=== PATIENT | female | born 1930 | race Caucasian/White ===

== ENCOUNTER → 2017-07-15 | Outpatient (CLI) | payer MEDICARE ==
[~2017-07-15] MED LIST: ACET-2743 PO; ALBUTEROL HFA IH; ALEN70TA2 PO; AMLO10TA2 PO; CA C1TAB99 PO; CHOL200074 PO; CICL6.6S TP; CLON0.1T PO; CLOP75TA14 PO; FEBU80TA PO; LIDOCAINE/PRILOCAINE CREAM 5GM TUBE TP ONE; NEBI20TA2 PO; SIMV40TA59 PO; TORS20TA4 PO; VIT1CAPS47 PO; VITA150T PO
[2017-07-15 17:43] VITALS: BP 156/74
== END | disposition home or self-care (01) ==
LOC: WHH 15:00
PROVIDERS: ATTEND Family Medicine
DX: I83.018 Varicose veins of right lower extremity with ulcer other part of lower leg (principal); E11.622 Type 2 diabetes mellitus with other skin ulcer; L97.811 Non-pressure chronic ulcer of other part of right lower leg limited to breakdown of skin; I89.0 Lymphedema, not elsewhere classified; I10 Essential (primary) hypertension; I25.10 Atherosclerotic heart disease of native coronary artery without angina pectoris; I69.354 Hemiplegia and hemiparesis following cerebral infarction affecting left non-dominant side; E78.4 Other hyperlipidemia; M15.9 Polyosteoarthritis, unspecified; E66.9 Obesity, unspecified; Z79.4 Long term (current) use of insulin
CPT/HCPCS: A4450; A6209; G0463; J3490

== ENCOUNTER → 2017-07-21 | Outpatient (CLI) | payer MEDICARE ==
[~2017-07-21] MED LIST changes: -LIDOCAINE/PRILOCAINE CREAM 5GM TUBE TP ONE
[2017-07-21 13:19] VITALS: BP 156/80
== END | disposition home or self-care (01) ==
LOC: WHH 09:20
PROVIDERS: ATTEND Family Medicine
DX: I83.018 Varicose veins of right lower extremity with ulcer other part of lower leg (principal); L97.811 Non-pressure chronic ulcer of other part of right lower leg limited to breakdown of skin; I25.10 Atherosclerotic heart disease of native coronary artery without angina pectoris; I10 Essential (primary) hypertension; I89.0 Lymphedema, not elsewhere classified; E66.9 Obesity, unspecified; E78.4 Other hyperlipidemia; M15.9 Polyosteoarthritis, unspecified; Z79.4 Long term (current) use of insulin
CPT/HCPCS: 93922; A6209; G0463

== ENCOUNTER → 2017-07-22 | Outpatient (CLI) | payer MEDICARE ==
[2017-07-22 13:42] VITALS: BP 162/59
== END | disposition home or self-care (01) ==
LOC: WHH 13:00
PROVIDERS: ATTEND Family Medicine
DX: I83.018 Varicose veins of right lower extremity with ulcer other part of lower leg (principal); E11.622 Type 2 diabetes mellitus with other skin ulcer; L97.811 Non-pressure chronic ulcer of other part of right lower leg limited to breakdown of skin; I89.0 Lymphedema, not elsewhere classified; I10 Essential (primary) hypertension; I25.10 Atherosclerotic heart disease of native coronary artery without angina pectoris; E66.9 Obesity, unspecified; E78.4 Other hyperlipidemia; M15.9 Polyosteoarthritis, unspecified; Z86.73 Personal history of transient ischemic attack (TIA), and cerebral infarction without residual deficits; Z79.4 Long term (current) use of insulin
CPT/HCPCS: A6021; A6452; G0463

== ENCOUNTER 2017-07-29 13:00 | Outpatient (CLI) | payer MEDICARE ==
[2017-07-29 13:23] VITALS: BP 141/69
== END 2017-07-29 14:51 | disposition home or self-care (01) ==
LOC: WHH 13:00
PROVIDERS: ATTEND Family Medicine
DX: I83.018 Varicose veins of right lower extremity with ulcer other part of lower leg (principal); E11.622 Type 2 diabetes mellitus with other skin ulcer; L97.811 Non-pressure chronic ulcer of other part of right lower leg limited to breakdown of skin; I89.0 Lymphedema, not elsewhere classified; I10 Essential (primary) hypertension; I25.10 Atherosclerotic heart disease of native coronary artery without angina pectoris; E66.9 Obesity, unspecified; E78.4 Other hyperlipidemia; M15.9 Polyosteoarthritis, unspecified; Z86.73 Personal history of transient ischemic attack (TIA), and cerebral infarction without residual deficits; Z79.4 Long term (current) use of insulin
CPT/HCPCS: G0463

== ENCOUNTER 2017-08-13 19:11 | Inpatient (IN) | payer MEDICARE ==
[~2017-08-13] VITALS: Ht 157.5 cm; Wt 101.0 kg
[2017-08-13 21:58] LABS: BASOPHILS % (AUTO) 0.4 % (0.0-5.0); EOSINOPHILS % (AUTO) 3.4 % (0.0-8.0); HEMATOCRIT 36.9 % (36-48); LYMPHOCYTES % (AUTO) 25.9 % (21.0-51.0); MEAN CORPUSCULAR HEMOGLOBIN 30.9 pg (27.0-33.0); MEAN CORPUSCULAR HGB CONC 34.4 g/dL (32.0-36.0); MONOCYTES % (AUTO) 9.6 % (3.0-13.0); NEUTROPHILS % (AUTO) 60.7 % (40.0-77.0); PLATELET COUNT (AUTO) 366 K/uL (130-400); RED CELL DISTRIBUTION WIDTH 13.2 % (11.0-15.5); WHITE BLOOD COUNT (AUTO) 10.9 K/uL (4.8-10.8)
[2017-08-13] MEDS ORDERED: ACETAMINOPHEN 325 MG TAB PO PRN ×2 (22:00)
[2017-08-13] MEDS ORDERED: DEXTROSE 50%-WATER 50 ML DISP.SYRIN IV PRN (22:00)
[2017-08-13] MEDS ORDERED: ACETAMINOPHEN-CODEINE 300/30MG TAB PO PRN (22:00)
[2017-08-13] MEDS ORDERED: DiphenhydrAMINE HCL 50 MG/ML VIAL IVP PRN (22:00)
[2017-08-13] MEDS ORDERED: GLUCAGON 1MG KIT 1 MG ML IM PRN (22:00)
[2017-08-13] MEDS ORDERED: DIPHENHYDRAMINE HCL 25 MG CAPSULE PO PRN (22:00)
[2017-08-13] MEDS ORDERED: NITROGLYCERIN 0.4 MG SL TAB SL PRN (22:00)
[2017-08-13] MEDS ORDERED: MAG HYDROX/AL HYDROX/SIMETH ES 30 ML SUSP UDCUP PO PRN (22:00)
[2017-08-13] MEDS ORDERED: POTASSIUM CHLORIDE 20MEQ/100ML 100 ML IV PRN (22:00)
[2017-08-13] MEDS ORDERED: POTASSIUM CHLORIDE 20 MEQ ERTAB PO PRN (22:00)
[2017-08-13] MEDS ORDERED: GUAIFENESIN-DM 200/20 MG 10 ML PO PRN (22:00)
[2017-08-13] MEDS ORDERED: LIDOCAINE HCL-MPF 1% 2ML VIAL IJ PRN (22:00)
[2017-08-13] MEDS ORDERED: GUAIFENESIN SUGAR-FREE 100 MG/5 ML UDCUP PO PRN (22:00)
[2017-08-13] MEDS ORDERED: POTASSIUM CHLORIDE 10% ELIXIR 20 MEQ/15 ML UDCUP PO PRN (22:00)
[2017-08-13] MEDS ORDERED: SODIUM CHLORIDE 0.9% 1000ML 1,000 ML IV SCH (22:00)
[2017-08-13] MEDS ORDERED: ENOXAPARIN SODIUM 30 MG/0.3 ML SQ ONE (22:06)
[2017-08-13 22:07] LABS: CREATININE 1.6 mg/dL (0.5-1.5); POTASSIUM 4.2 mmol/L (3.5-5.1)
[2017-08-13 22:09] LABS: INR 0.93 (0.85-1.15); PARTIAL THROMBOPLASTIN TIME 20.3 SEC (26.3-35.5); PROTHROMBIN TIME 9.8 SEC (9.6-11.6)
[2017-08-13 22:11] LABS: ALBUMIN 3.3 g/dL (3.5-5.0); BILIRUBIN,TOTAL 0.3 mg/dL (0.2-1.0)
[2017-08-13 22:40] VITALS: BP 152/80
[2017-08-13 22:57] LABS: ERYTHROCYTE SEDIMENTATION RATE 60 MM/HR (0-15)
[2017-08-13] MEDS: ONDANSETRON HCL 4 MG/2 ML VIAL IVP PRN (23:54)
[2017-08-13] MEDS: ZOLPIDEM TARTRATE 5 MG TAB PO PRN (23:54)
[2017-08-13] MEDS: CLONIDINE HCL 0.1 MG TABLET PO PRN (23:56)
[2017-08-14] VITALS: BP 146/71
[2017-08-14] MEDS: FUROSEMIDE 10 MG/ML 4ML VIAL IV SCH (01:00)
[2017-08-14] MEDS ORDERED: FUROSEMIDE 10 MG/ML 4ML VIAL ONE (02:18)
[2017-08-14 04:00] VITALS: BP 155/72
[2017-08-14 05:34] LABS: HEMATOCRIT 34.1 % (36-48); MEAN CORPUSCULAR HEMOGLOBIN 31.7 pg (27.0-33.0); MEAN CORPUSCULAR HGB CONC 35.1 g/dL (32.0-36.0); MEAN CORPUSCULAR VOLUME 90.2 fL (79-99); NUCLEATED RED BLOOD CELLS 0.1 % (0.0-0.19); PLATELET COUNT (AUTO) 332 K/uL (130-400); RED BLOOD CELL COUNT(AUTO) 3.78 MIL/uL (4.00-5.50); RED CELL DISTRIBUTION WIDTH 13.3 % (11.0-15.5); WHITE BLOOD COUNT (AUTO) 10.5 K/uL (4.8-10.8)
[2017-08-14 05:49] LABS: CREATININE 1.6 mg/dL (0.5-1.5); POTASSIUM 4.3 mmol/L (3.5-5.1)
[2017-08-14 06:13] LABS: B-TYPE NATRIURETIC PEPTIDE 106 pg/mL (0-100)
[2017-08-14] MEDS: INSULIN R PO SSI SQ SCH ×4 (06:32→22:27)
[2017-08-14 08:00] VITALS: BP 155/72
[2017-08-14] MEDS ORDERED: ENOXAPARIN SODIUM 30 MG/0.3 ML SQ SCH (09:00)
[2017-08-14] MEDS ORDERED: CEFTRIAXONE 1GM/D5W 50ML 50 ML IV SCH (11:00)
[2017-08-14] MEDS ORDERED: ACET-2743 PO (11:46)
[2017-08-14] MEDS ORDERED: TORS20TA4 PO (11:46)
[2017-08-14] MEDS ORDERED: NEBI20TA2 PO (11:46)
[2017-08-14] MEDS ORDERED: AMLO10TA2 PO (11:46)
[2017-08-14] MEDS ORDERED: CLOP75TA14 PO (11:46)
[2017-08-14] MEDS ORDERED: FEBU80TA PO (11:46)
[2017-08-14] MEDS ORDERED: ALBUTEROL HFA IH (11:46)
[2017-08-14] MEDS ORDERED: CLON0.1T PO ×2 (11:46→11:50)
[2017-08-14] MEDS ORDERED: CHOL200074 PO (11:46)
[2017-08-14] MEDS ORDERED: CA C1TAB99 PO (11:46)
[2017-08-14] MEDS ORDERED: VITA150T PO (11:46)
[2017-08-14] MEDS ORDERED: VIT1CAPS47 PO (11:46)
[2017-08-14] MEDS ORDERED: ALEN70TA2 PO (11:46)
[2017-08-14] MEDS ORDERED: SIMV40TA59 PO (11:46)
[2017-08-14] MEDS ORDERED: CICL6.6S TP (11:46)
[2017-08-14 12:00] VITALS: BP 145/72
[2017-08-14] MEDS: CEFTRIAXONE SODIUM 1 GM IVP SCH (13:21)
[2017-08-14] MEDS: IPRATROPIUM/ALBUTEROL SULFATE 3 ML SOLUTION IH SCH ×3 (14:12→22:42)
[2017-08-14 16:00] VITALS: BP 141/66
[2017-08-14 20:00] VITALS: BP 159/68
[2017-08-14] MEDS: ENOXAPARIN SODIUM 30 MG/0.3 ML SQ SCH (22:21)
[2017-08-15] VITALS (7 sets, daily range): BP systolic 142–170; BP diastolic 65–90
[2017-08-15] MEDS: FUROSEMIDE 10 MG/ML 4ML VIAL IV SCH (01:00)
[2017-08-15] MEDS: IPRATROPIUM/ALBUTEROL SULFATE 3 ML SOLUTION IH SCH ×6 (01:45→22:04)
[2017-08-15] MEDS: INSULIN R PO SSI SQ SCH ×4 (06:57→20:40)
[2017-08-15] MEDS: CEFTRIAXONE SODIUM 1 GM IVP SCH (08:42)
[2017-08-15] MEDS: FUROSEMIDE 10 MG/ML 2ML VIAL IV SCH ×2 (12:54→19:01)
[2017-08-15] MEDS ORDERED: DIATR MEGLU/DIATRIZOATE SODIUM 30 ML BOTTLE PO ONE ×2 (13:18→14:01)
[2017-08-15] MEDS: ONDANSETRON HCL 4 MG/2 ML VIAL IVP PRN (14:23)
[2017-08-15] MEDS: LACTULOSE 20 GM/30 ML UDCUP PO PRN (20:35)
[2017-08-15] MEDS: ENOXAPARIN SODIUM 30 MG/0.3 ML SQ SCH (20:35)
[2017-08-15] MEDS: NYSTATIN 15 GM POWDER TP SCH (21:24)
[2017-08-16] MEDS: ZOLPIDEM TARTRATE 5 MG TAB PO PRN (00:55)
[2017-08-16] MEDS: IPRATROPIUM/ALBUTEROL SULFATE 3 ML SOLUTION IH SCH ×6 (01:39→22:20)
[2017-08-16 04:00] VITALS: BP 159/75
[2017-08-16 07:00] VITALS: BP 150/73
[2017-08-16] MEDS: INSULIN R PO SSI SQ SCH ×4 (07:53→21:37)
[2017-08-16] MEDS: FUROSEMIDE 10 MG/ML 2ML VIAL IV SCH ×2 (08:12→18:17)
[2017-08-16] MEDS: CEFTRIAXONE SODIUM 1 GM IVP SCH (08:12)
[2017-08-16] MEDS: NYSTATIN 15 GM POWDER TP SCH ×2 (08:12→21:40)
[2017-08-16 11:00] VITALS: BP 143/62
[2017-08-16 11:35] LABS: HEMATOCRIT 38.6 % (36-48); MEAN CORPUSCULAR HEMOGLOBIN 30.5 pg (27.0-33.0); MEAN CORPUSCULAR VOLUME 89.8 fL (79-99); PLATELET COUNT (AUTO) 381 K/uL (130-400); RED CELL DISTRIBUTION WIDTH 13.2 % (11.0-15.5); WHITE BLOOD COUNT (AUTO) 14.3 K/uL (4.8-10.8)
[2017-08-16 11:45] LABS: CREATININE 1.6 mg/dL (0.5-1.5); POTASSIUM 4.2 mmol/L (3.5-5.1)
[2017-08-16 16:00] VITALS: BP 157/84
[2017-08-16] MEDS: LACTULOSE 20 GM/30 ML UDCUP PO PRN (18:17)
[2017-08-16 19:48] VITALS: BP 159/63
[2017-08-16 19:51] VITALS: BP 181/88
[2017-08-16] MEDS: CLONIDINE HCL 0.1 MG TABLET PO PRN (20:26)
[2017-08-16] MEDS: ENOXAPARIN SODIUM 30 MG/0.3 ML SQ SCH (20:28)
[2017-08-17] VITALS: BP 133/64
[2017-08-17] MEDS: IPRATROPIUM/ALBUTEROL SULFATE 3 ML SOLUTION IH SCH ×6 (01:44→21:23)
[2017-08-17 04:00] VITALS: BP 187/92
[2017-08-17] MEDS: CLONIDINE HCL 0.1 MG TABLET PO PRN (06:04)
[2017-08-17 07:00] VITALS: BP 158/83
[2017-08-17] MEDS: INSULIN R PO SSI SQ SCH ×4 (07:33→22:01)
[2017-08-17] MEDS: CEFTRIAXONE SODIUM 1 GM IVP SCH (09:00)
[2017-08-17] MEDS: NYSTATIN 15 GM POWDER TP SCH ×2 (09:39→21:55)
[2017-08-17] MEDS: FUROSEMIDE 10 MG/ML 2ML VIAL IV SCH (10:01)
[2017-08-17] MEDS ORDERED: ALBUTEROL SULFATE 0.083% 2.5 MG/3 ML INH IH PRN (10:45)
[2017-08-17 11:00] VITALS: BP 147/74
[2017-08-17] MEDS: AMOXICILLIN/POTASSIUM CLAV 875-125 TABLET PO SCH ×2 (11:44→21:54)
[2017-08-17] MEDS: CLONIDINE HCL 0.1 MG TABLET PO SCH ×2 (14:19→21:55)
[2017-08-17 16:00] VITALS: BP 133/80
[2017-08-17] MEDS: CALCIUM 600 + VITAMIN D 400 TABLET PO SCH (18:01)
[2017-08-17] MEDS: NEBIVOLOL HCL 20 MG TABLET PO SCH (18:01)
[2017-08-17] MEDS: ASCORBIC ACID 500 MG TAB PO SCH (18:01)
[2017-08-17 20:00] VITALS: BP 153/74
[2017-08-17] MEDS ORDERED: ATORVASTATIN CALCIUM 20 MG TABLET PO SCH (21:00)
[2017-08-18] VITALS: BP 149/69
[2017-08-18] MEDS: IPRATROPIUM/ALBUTEROL SULFATE 3 ML SOLUTION IH SCH ×3 (01:12→09:52)
[2017-08-18 04:00] VITALS: BP 141/74
[2017-08-18] MEDS: INSULIN R PO SSI SQ SCH ×2 (06:23→13:11)
[2017-08-18] MEDS ORDERED: ALENDRONATE SODIUM 35 MG TAB PO SCH (06:30)
[2017-08-18 08:39] VITALS: BP 172/84
[2017-08-18] MEDS ORDERED: AMLODIPINE BESYLATE 5 MG TAB PO SCH (09:00)
[2017-08-18] MEDS ORDERED: FEBUXOSTAT 80 MG PO SCH (09:00)
[2017-08-18] MEDS ORDERED: CICLOPIROX TP SCH (09:00)
[2017-08-18] MEDS ORDERED: CLOPIDOGREL BISULFATE 75 MG TAB PO SCH (09:00)
[2017-08-18] MEDS ORDERED: CHOLECALCIFEROL 1000 UNIT PO SCH (09:00)
[2017-08-18] MEDS ORDERED: VITAMIN B COMPLEX 1 CAPSULE PO SCH (09:00)
[2017-08-18] MEDS ORDERED: TORSEMIDE 20 MG TAB PO SCH (09:00)
[2017-08-18] MEDS: NEBIVOLOL HCL 20 MG TABLET PO SCH (09:28)
[2017-08-18] MEDS: CALCIUM 600 + VITAMIN D 400 TABLET PO SCH (09:28)
[2017-08-18] MEDS: CLONIDINE HCL 0.1 MG TABLET PO SCH ×2 (09:29→14:25)
[2017-08-18] MEDS: ASCORBIC ACID 500 MG TAB PO SCH (09:29)
[2017-08-18] MEDS: NYSTATIN 15 GM POWDER TP SCH (09:30)
[2017-08-18 12:05] VITALS: BP 142/80
[2017-08-18] MEDS: AMOXICILLIN/POTASSIUM CLAV 875-125 TABLET PO SCH (12:21)
[2017-08-18 14:25] VITALS: BP 142/80
== END 2017-08-18 16:43 | DRG 603 ==
LOC: EDH 19:11 → EDHIP 21:15 → 4DH 22:23
PROVIDERS: ADMIT Family Medicine; ATTEND Family Medicine
DX: L03.116 Cellulitis of left lower limb (principal); E11.22 Type 2 diabetes mellitus with diabetic chronic kidney disease; I13.10 Hypertensive heart and chronic kidney disease without heart failure, with stage 1 through stage 4 chronic kidney disease, or unspecified chronic kidney disease; I89.0 Lymphedema, not elsewhere classified; L03.115 Cellulitis of right lower limb; E78.5 Hyperlipidemia, unspecified; I25.10 Atherosclerotic heart disease of native coronary artery without angina pectoris; J44.9 Chronic obstructive pulmonary disease, unspecified; M81.0 Age-related osteoporosis without current pathological fracture; N18.9 Chronic kidney disease, unspecified; N83.201 Unspecified ovarian cyst, right side; M19.90 Unspecified osteoarthritis, unspecified site; Z82.3 Family history of stroke; Z82.49 Family history of ischemic heart disease and other diseases of the circulatory system; Z86.73 Personal history of transient ischemic attack (TIA), and cerebral infarction without residual deficits; Z88.2 Allergy status to sulfonamides; Z90.49 Acquired absence of other specified parts of digestive tract; Z88.8 Allergy status to other drugs, medicaments and biological substances; Z87.81 Personal history of (healed) traumatic fracture
CPT/HCPCS: 36415; 71045; 71250; 74018; 74176; 76856; 80048; 80053; 82948; 83880; 85025; 85027; 85610; 85651; 85730; 93005; 93306; 94640; 94664; 97039; A4218; J0696; J1650; J1815; J1940; J2405; J7030; Q9963